=== PATIENT | female | born 1955 | race Caucasian/White ===

== ENCOUNTER 2016-09-09 13:21 | Outpatient (CLI) | payer OTHER ==
--- NOTE | 2016-09-09 14:05 | DIAGNOSTIC IMAGING REPORT ---
PROCEDURE: MG BILATERAL SCREENING W/CAD INDICATION: SCREENING. Family history (maternal grandmother) TECHNIQUE: Bilateral CC and MLO digital views. COMPARISON: Mammograms 05/19/2010, 08/29/2008 and 08/27/2007. FINDINGS: Computer-aided detection applied. Mildly to moderately dense pattern with an 8 mm opacity in the mid lateral aspect of the left breast. Scattered microcalcifications. IMPRESSION: 1. New 8 mm opacity in the mid lateral aspect of the left breast. Recommend additional views and ultrasound RESULT CODE: 0- Incomplete; needs additional evaluation. A. A negative report should not delay biopsy if a dominant or clinically suspicious mass is present. 10-15% of cancers are not identified by x-ray. B. A negative report may reinforce clinical impression. C. Adenosis and dense breasts may obscure an underlying neoplasm. D. False positive reports average 6-10%. E.. A yearly screening mammogram is recommended. A reminder letter will be scheduled.
== END 2016-09-09 23:00 ==
LOC: MAM SRH 13:21
DX: Z12.31 Encounter for screening mammogram for malignant neoplasm of breast (principal)